=== PATIENT | female | born 1960 | race Caucasian/White ===

== ENCOUNTER 2016-07-12 22:44 | Emergency (ER) | payer OTHER ==
[~2016-07-12] VITALS: Ht 162.6 cm; Wt 52.2 kg
[2016-07-12 22:52] VITALS: BP 120/76
[2016-07-12] MEDS ORDERED: DITROPAN XL10 MG PO (22:56)
[2016-07-12] MEDS ORDERED: OMEPRAZOLE40 MG PO (22:57)
[2016-07-12] MEDS ORDERED: LOSARTAN POTAS100 MG PO (22:57)
[2016-07-12] MEDS ORDERED: ESCITALOPRAM OX10 MG PO (22:57)
[2016-07-12] MEDS ORDERED: VALACYCLOVIR1000 MG PO (22:57)
== END 2016-07-12 23:44 | disposition home or self-care (01) ==
LOC: ER 22:44
DX: S01.112A Laceration without foreign body of left eyelid and periocular area, initial encounter (principal); F17.210 Nicotine dependence, cigarettes, uncomplicated; F10.99 Alcohol use, unspecified with unspecified alcohol-induced disorder; W21.07XA Struck by softball, initial encounter; Y93.64 Activity, baseball; Y92.39 Other specified sports and athletic area as the place of occurrence of the external cause; Y99.8 Other external cause status